=== PATIENT | female | born 1990 | race Caucasian/White ===

== ENCOUNTER 2017-01-23 06:00 | Inpatient (IN) | payer OTHER ==
[~2017-01-23] VITALS: Ht 152.4 cm; Wt 64.9 kg
[~2017-01-23 06:00] MED LIST: IBUPROFEN800 MG PO; MOTRIN800 MG PO; NATURAL IRON65 MG PO; PERCOCET 325 MG1 TA2 PO; PREDNISONE 10MG10 M1 PO; PRENATAL1 TA2 PO
--- NOTE | 2017-01-23 07:48 | History & Physical ---
General Information and [facility] MD Statement: I have seen and personally examined WALKER,JANUARY and documented this H&P. The patient is a 27 year old female at 39[] weeks and [] days gestation who presented with a chief complaint of []. 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 Last Menstrual Period: Doesn't remember unknown 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 No Contractions: None Patient for Induction? No Labs Blood Type & Rh: A positive Antibody Screen: Negative Hct/Hgb & Platelets #1: N/33/240 Hct/Hgb & Platelets #2: 1134-41 Rubella: Immune VDRL #1: Nonreactive VDRL #2: Nonreactive HbsAg: Negative HIV #1: Negative HIV #2 Negative 1 Hr P Group B Strep: Negative Initial Ultrasound: Normal Anatomy Ultrasound: Normal Genetic Testing: Normal Last 24 Hrs of Labs/Polo: Microbiology 01/23 0739 URINE ROUT: Urine Culture - COLB Assessment/Plan Assessment/Plan: 2 previous sections multiparity As Ranked By This Provider Problem List: 1. Core Measures/Miscellaneous Venous Thromboembolism VTE Risk Factors: / VTE Contraindications: No Contraindications VTE Diagnosis: No Beta Jose M Is Beta Jose M a Home Med? No Antibiotics Is Patient on Antibiotics? No
--- NOTE | 2017-01-23 08:53 | Operative Report ---
Operative/Inv Procedure Report Surgery Date: 01/23/17 Name of Procedure: Repeat section lysis of adhesions via Pfannenstiel skin incision and bilateral tubal ligation [place] technique Pre-Operative Diagnosis: Multiparity 2 previous sections Post-Operative Diagnosis: Same Estimated Blood Loss: 50-0 Surgeon/Target Network Analyst: Dr. Nikunj Galindo MD,ARLETTE Denis Anesthesia: block Operative/Procedure Note Note: Seasonal patient was taken to the operating room placed on the patient's adequate skin testing for spinal anesthesia patient was placed in dorsal lithotomy position and the vagina was prepped and fashioned bladder was catheterized examination under anesthesia performed. Patient was returned sponge position on the abdomen was prepped fashioned skin was tested once again found to be adequate for surgery to HEAL skin incision skin was cut was carried down to rectus fascia which was cut in curvilinear fashion in either direction using curved [place] and dissected sharply as well as bluntly off of the rectus muscle patient tolerated this well I this point the peritoneum was entered high into the abdomen and the low platelet [place] was placed lowering the incision the visceral peritoneum and the uterus dissected anteriorly IV uterus was entered through the peritoneum as there was a window was inserted over the abdominal wall suction well into clear the course of the current and cut was handed pediatricians waiting to living to resuscitation placenta was delivered manuallyintact with adherent membranes uterus was wiped clean with 2 a dry lap to ensure it was free of adherent membranes uses oversewn running locking suture hemostasis was apparent interrupted [id number] were used for hemostasis intravenous placing intramyometrial Pitocin was used to aid in uterine contractility at this point the right tube was picked up clamped 2 USING 0 COTTON IN THE MESOSALPINX WAS BURNED LEFT TUBE WAS PICKED UP CLAMPED OVERSEWN 2 CUT BURNED SPECIMEN WAS SENT TO PATHOLOGY FROM BOTH TUBES HEMOSTASIS WAS APPARENT THE ABDOMEN.) ONCE INTO CLEAR PERITONEUM WAS REAPPROXIMATED 0 THE FUNDUS WAS REPLACED INTO CONDITION SUTURES #1 SKIN WAS REAPPROXIMATED JOSÉ AT THE END THE CASE COUNTS CORRECT URINE WAS CLEAR MOTHER WAS TRANSFERRED RECOVERY ROOM AWAKE ALERT WITH COUNTS CORRECT Findings: Viable female three-vessel cord tubes and ovaries bilaterally on a 4 cm window in the uterus
[2017-01-24 07:38] LABS: ABSOLUTE BASOPHIL COUNT 0 /CUMM (0.0-0.2); ABSOLUTE EOSINOPHIL COUNT 0 /CUMM (0.0-0.7); ABSOLUTE GRANULOCYTE CT 6.6 /CUMM (1.4-6.5); ABSOLUTE LYMPH COUNT 3.2 /CUMM (1.2-3.4); ABSOLUTE MONOCYTE COUNT 0.7 /CUMM (0.10-0.60); BASOPHIL % 0.3 % (0.0-2.0); EOSINOPHIL % 0.2 % (0-5); GRANULOCYTE % 62.5 % (42.2-75.2); HEMATOCRIT 32.8 % (37-47); MEAN CORPUSCULAR HGB 32.7 PG (27.0-31.0); MEAN CORPUSCULAR HGB CONC 33.9 G/DL (33.0-37.0); MEAN CORPUSCULAR VOLUME 96.4 FL (81.0-99.0); MEAN PLATELET VOLUME 9.7 FL (7.4-10.4); PLATELET COUNT 279 /CUMM (130-400); RBC DISTRIBUTION WIDTH 14.1 % (11.5-14.5); WHITE BLOOD CELL COUNT 10.5 /CUMM (4.8-10.8)
--- NOTE | 2017-01-24 09:26 | PN- Post Delivery/GYN ---
Subjective Subjective: NO COMPLAINTS Objective Last 24 Hrs of Vital Signs/I&O PER CHART Physical Exam: PE PALE WF IN NAD ABD SOFT NT LOCHIA MINIMAL FUNDUS FIRM NT INCISION CDI EXT -EDEMA -HOMANS Assessment/Plan Assessment/Plan ASSESS S/P C/STL PLAN CONT PPC
--- NOTE | 2017-01-25 07:54 | PN- Obstetrical ---
Subjective Subjective: NO COMPLAINTS Objective Last 24 Hrs of Vital Signs/I&O PER CHART Physical Exam: PETHIN WF IN NAD ABD SOFT NT FUNDUS FIRM NT. LOCHIA MINIMAL EXT EDEMA -HOMANS Obstetric Exam Dilation (cm): 0 Effacement (%): 0 Station: 0 Membranes: intact Fluid: unknown Multiple Gestation? No Contractions: NONE Assessment/Plan Assessment/Plan ASSESS S/P C/S PLAN CONT PPC
[2017-01-25] MEDS ORDERED: IBUPROFEN800 M1 PO (07:55)
[2017-01-25] MEDS ORDERED: PERCOCET 5-3251 EACH PO (07:55)
--- NOTE | 2017-02-06 11:14 | Surgical Discharge Summary ---
Visit Information Visit Dates Admission Date: 01/23/17 Discharge Date: 01/26/17 History of Present Illness Chief Complaint: . Have baby and have my tubes tied Medical History Tetanus Vaccine: 11/24/11 Surgical History Pertinent Surgical History: Psychosocial History What is Your Primary Language? Occitan Review of Systems: -13 point review of systems as stated in the HPI Hospital Course Course Attending Physician: ARLETTE GODFREY MD Primary Care Physician: PATIENT HAS NO PRIMARY CARE DR Hospital Course: Patient was admitted for a repeat section and tubal ligation and tubal ligation she did very well she bonded with her infant first postoperative day second postoperative day she tolerated clear liquid diet rate to a regular diet and she was discharged home on third hospital day gas and had a bowel movement Allergies: Coded Allergies: No Known Allergies (01/23/17) Disposition Summary Disposition Principal Diagnosis: Is post section Additional Diagnosis: Assess post tubal ligation Discharge Disposition: home or self care Discharge Instructions General Discharge Information Code Status: Full Code Patient's Diet: Regular R Patient's Activity: Pelvic rest 6 weeks no heavy lifting for 6 weeks no driving for 2 weeks Follow-Up Instructions/Appts: My office 2 weeks return nurses to remove leigh in 1 week Medications at Discharge Discharge Medications: Start taking the following new medications: Ibuprofen (Ibuprofen) 800 MG TABLET 800 Milligram ORAL EVERY SIX HOURS NEEDED as needed for UTERINE CRAMPING Qty = 30 No Refills Comments: Last Taken:01/26/17 Time:0845 Oxycodone HCl/Acetaminophen (Percocet 5-325 MG Tablet) 5 MG-325 MG TABLET 1 Tablet ORAL EVERY 4 HOURS NEEDED as needed for PAIN SCALE 4-6 (MODERATE ) Qty = 30 No Refills Comments: Last Taken:01/26/17 Time:0845
== END 2017-01-26 12:00 | DRG 540 ==
LOC: GNO 06:00
PROVIDERS: ADMIT Specialist
PROC: 10D00Z1 Extraction of Products of Conception, Low, Open Approach (ICD-10-PCS; principal; 2017-01-23)
PROC: 0U570ZZ Destruction of Bilateral Fallopian Tubes, Open Approach (ICD-10-PCS; principal; 2017-01-23)
DX: O34.211 Maternal care for low transverse scar from previous cesarean delivery (principal); N85.8 Other specified noninflammatory disorders of uterus; Z3A.39 39 weeks gestation of pregnancy; Z37.0 Single live birth; O09.43 Supervision of pregnancy with grand multiparity, third trimester; Z30.2 Encounter for sterilization; F17.200 Nicotine dependence, unspecified, uncomplicated
CPT/HCPCS: GNOS; 81001; 87086; 88302; 88307; J0690; J1650; J1885; J7120